=== PATIENT | female | born 1970 | race Caucasian/White ===

== ENCOUNTER 2019-07-19 20:23 | Emergency (ER) | payer OTHER ==
[~2019-07-19] VITALS: Ht 160 cm; Wt 78.5 kg
[~2019-07-19 20:23] MED LIST: NOHOMEMEDICATIONS
[2019-07-19 20:53] LABS: ABSOLUTE BASOPHILS 0.1 thou/uL (0.0-0.2); ABSOLUTE EOSINOPHILS 0.1 thou/uL (0.0-0.7); ABSOLUTE LYMPHOCYTES 2.6 thou/uL (0.8-5.3); ABSOLUTE MONOCYTES 0.5 thou/uL (0.0-1.2); ABSOLUTE NEUTROPHILS 4.7 thou/uL (1.6-8.1); BASOPHILS 0.8 %; EOSINOPHILS 0.7 %; HEMATOCRIT 39.6 % (37.0-47.0); HEMOGLOBIN 13.7 gm/dL (12.0-15.0); MCH 31.5 pg (26.0-34.0); MCHC 34.6 g/dL (28.0-37.0); MCV 91.2 fL (80.0-100.0); MONOCYTES 6.8 %; MPV 8.7 fl. (7.2-11.1); NUCLEATED RBCS 0 /100WBC; PLATELET COUNT* 207 thou/uL (150-400); POLYS 58.7 %; RBC 4.34 mil/uL (4.20-5.00); RDW-CV 12.6 % (10.5-14.5)
[2019-07-19 21:02] LABS: ANION GAP 11 mmol/L (7-16); BUN 19 mg/dL (7-18); CHLORIDE 102 mmol/L (98-107); CO2 24 mmol/L (21-32); CREATININE 0.7 mg/dL (0.6-1.3); GLUCOSE 106 mg/dL (70-99); POTASSIUM 3.7 mmol/L (3.5-5.1); SODIUM 137 mmol/L (136-145)
[2019-07-19 21:13] LABS: ALBUMIN 3.6 g/dL (3.4-5.0); ALKALINE PHOSPHATASE 62 U/L (46-116); LIPASE 227 U/L (73-393); MAGNESIUM 1.9 mg/dL (1.8-2.4); NT-PRO BRAIN NAT PEPTIDE 97 pg/mL (<300); SGOT 18 U/L (15-37); SGPT 25 U/L (30-65); TOTAL BILIRUBIN 0.4 mg/dL (<0.1-1.0); TOTAL PROTEIN 7.2 g/dL (6.4-8.2)
[2019-07-19 21:26] LABS: TROPONIN-I LEVEL <0.06 ng/mL (<0.06)
[2019-07-19 22:12] VITALS: BP 110/78
--- NOTE | 2019-07-20 18:02 | EKG ---
[place] [address] ELECTROCARDIOGRAM REPORT Name: ALMABIANCA PHILIP Room: [facility]#: [id number] Admission: 07/19/19 Attend Phys: Discharge: 07/19/19 Date of : 66 Report #: [id number] THIS REPORT FOR: //name// [facility] ED Test Date: 2019-07-19 Test Time: 20:30:15 Pat Name: BIANCA MARQUEZ Department: Room: Gender: F Client Project Coordinator: ROXANA : 1970 Requested By: Chago Cadet Order Number: [id number] MD: Abrahan Tovar Measurements Intervals [place] Rate: 82 P: 39 PA: 139 QRS: 10 QRSD: 91 T: 46 QT: 360 QTc: 421 Interpretive Statements Sinus rhythm Ventricular premature complex Borderline T wave abnormalities ST elevation, consider anterior injury Compared to ECG 06/08/2016 12:04:50 Ventricular premature complex(es) now present T-wave abnormality now present Myocardial infarct finding now present ST (T wave) deviation still present Electronically Signed On 07-20-2019 18:02:26 CDT by Abrahan Tovar [email or web address] <ELECTRONICALLY SIGNED> By: Jaswinder Tovar MD, [facility] 07/20/19 1802 29 29 Jaswinder Tovar MD, [facility] /EPI
== END 2019-07-19 22:13 | disposition left against medical advice (07) ==
LOC: M.ERS 20:23
PROVIDERS: Emergency Medicine Emergency Medical Services
DX: R07.89 Other chest pain (principal); F17.210 Nicotine dependence, cigarettes, uncomplicated; E78.00 Pure hypercholesterolemia, unspecified